=== PATIENT | male | born 1995 | race African-American/Black ===

== ENCOUNTER 2018-06-20 09:45 | Emergency (ER) | payer SELFPAY ==
[~2018-06-20] VITALS: Ht 188 cm; Wt 93.0 kg
[2018-06-20 09:49] VITALS: BP 144/87
== END 2018-06-20 13:43 | disposition left against medical advice (07) ==
LOC: ER 09:45
DX: S90.32XA Contusion of left foot, initial encounter (principal); S90.02XA Contusion of left ankle, initial encounter; J45.909 Unspecified asthma, uncomplicated; V49.88XA Car occupant (driver) (passenger) injured in other specified transport accidents, initial encounter; Y93.89 Activity, other specified; Y92.89 Other specified places as the place of occurrence of the external cause; Y99.8 Other external cause status
CPT/HCPCS: 73610; 73630; 99284